=== PATIENT | male | born 1980 | race Caucasian/White ===

== ENCOUNTER 2018-05-26 11:10 | Emergency (ER) | payer OTHER ==
[2018-05-26] MEDS: ONDANSETRON 4 MG INJ IV (11:36)
[2018-05-26] MEDS: HYDROmorphONE 1 MG/ML SYG IV (11:36)
[2018-05-26] MEDS: SOD CHLORIDE 0.9% 1,000 ML IV (11:36)
[2018-05-26 11:42] LABS: ADD MAN DIFF? NO
[2018-05-26] MEDS: KETOROLAC 15 MG INJ IV (11:44)
[2018-05-26 11:45] LABS: BASOPHILS % 0.3 % (0.0-2.0); EOSINOPHILS # 0.2 10^3/ul (0.0-0.5); HEMATOCRIT 46.7 % (42.0-52.0); HEMOGLOBIN 15.1 g/dl (14.0-18.0); LYMPHOCYTES # 4.1 10^3/ul (0.8-2.9); LYMPHOCYTES % 35.5 % (15.0-51.0); MEAN CORPUSCULAR HEMOGLOBIN 27.4 pg (29.0-33.0); MEAN CORPUSCULAR HGB CONC 32.3 g/dl (32.0-37.0); MEAN CORPUSCULAR VOLUME 84.8 fl (82.0-101.0); MEAN PLATELET VOLUME 10.8 fl (7.4-10.4); MONOCYTE # 0.4 10^3/ul (0.3-0.9); MONOCYTES % 3.8 % (0.0-11.0); NEUTROPHIL # 6.7 10^3/ul (1.6-7.5); NEUTROPHILS % 57.8 % (39.0-77.0); PLATELET COUNT 278 10^3/UL (140-415); RED BLOOD COUNT 5.51 10^6/ul (4.70-6.10); RED CELL DISTRIBUTION WIDTH 13.2 % (11.5-14.5)
[2018-05-26 11:45] LABS: WHITE BLOOD COUNT 11.6 10^3/ul (4.8-10.8)
[2018-05-26] MEDS: HYDROmorphONE 0.5 MG/0.5 ML SYG IV (12:00)
[2018-05-26 12:03] LABS: ALANINE AMINOTRANSFERASE 26 IU/L (13-69); ALBUMIN 5.1 g/dl (3.3-4.9); ALBUMIN/GLOBULIN RATIO 1.45; ALKALINE PHOSPHATASE 58 IU/L (42-121); ANION GAP 13 (5-13); ASPARTATE AMINO TRANSFERASE 29 IU/L (15-46); BILIRUBIN,INDIRECT 1.4 mg/dl (0-1.1); BILIRUBIN,TOTAL 1.4 mg/dl (0.2-1.3); BLOOD UREA NITROGEN 19 mg/dl (7-20); CALCIUM 10.2 mg/dl (8.4-10.2); CARBON DIOXIDE 25 mmol/L (21-31); CHLORIDE 104 mmol/L (97-110); CREATININE 0.95 mg/dl (0.61-1.24); Estimated GFR > 60 mL/min (>60); GLUCOSE 162 mg/dl (70-220); LIPASE 75 U/L (23-300); POTASSIUM 4.1 mmol/L (3.5-5.1); SODIUM 142 mmol/L (135-144); TOTAL PROTEIN 8.6 g/dl (6.1-8.1)
[2018-05-26] MEDS ORDERED: HYDROmorphONE 2 MG/ML SYG IV (12:42)
[2018-05-26] MEDS: KETAMINE (50 MG/ML) 10 ML VIAL IV (12:54)
[2018-05-26] MEDS: HYDROmorphONE 2 MG/ML SYG IV (14:02)
== END 2018-05-26 14:22 | disposition home or self-care (01) ==
LOC: E/R 11:10
DX: N20.0 Calculus of kidney (principal)
CPT/HCPCS: 36415; 74176; 80053; 83690; 85025; 96361; 96374; 96375; 96376; 99285-25